=== PATIENT | male | born 1995 | race Caucasian/White ===

== ENCOUNTER 2018-04-17 22:56 | Emergency (ER) | payer OTHER ==
[~2018-04-17] VITALS: Ht 167.6 cm; Wt 63.5 kg
[2018-04-18 00:05] VITALS: BP 125/69
== END 2018-04-18 00:26 | disposition home or self-care (01) ==
LOC: ER 23:10
DX: J04.0 Acute laryngitis (principal); F32.9 Major depressive disorder, single episode, unspecified; F41.9 Anxiety disorder, unspecified; Z60.2 Problems related to living alone
CPT/HCPCS: Z7502